=== PATIENT | female | born 2000 | race Two or more races ===

== ENCOUNTER 2023-09-03 00:08 | Emergency (ER) | payer OTHER ==
[~2023-09-03] VITALS: Ht 162.6 cm; Wt 77.1 kg
[2023-09-03 01:22] LABS: HEMATOCRIT 37.5 % (36.0-45.00); HEMOGLOBIN 12.6 g/dL (12.0-15.00); MEAN CELL VOLUME 78.6 fL (80.00-100.00); MEAN CORPUSCULAR HEMOGLOBIN 26.3 pg (27.00-32.0); MEAN CORPUSCULAR HGB CONC 33.5 g/dl (32.0-36.0); PLATELET COUNT 272 K/uL (150-450); RED BLOOD COUNT 4.78 M/uL (4.00-6.00); RED CELL DISTRIBUTION WIDTH 13.2 % (11.5-14.5)
[2023-09-03] MEDS ORDERED: AMOX-CLAV 875-1 EACH PO (02:17)
[2023-09-03] MEDS ORDERED: TUSNEL LIQUID178 ML PO (02:17)
== END 2023-09-03 02:20 | disposition home or self-care (01) ==
LOC: ER 00:08
PROVIDERS: General Practice
DX: J06.9 Acute upper respiratory infection, unspecified (principal); R05.9 Cough, unspecified; Z20.822 Contact with and (suspected) exposure to COVID-19

== ENCOUNTER 2024-06-18 19:19 | Emergency (ER) | payer OTHER ==
[~2024-06-18] VITALS: Ht 162.6 cm; Wt 72.6 kg
[~2024-06-18 19:19] MED LIST: AMOX-CLAV 875-1 EACH PO; TUSNEL LIQUID178 ML PO
[2024-06-18 19:51] VITALS: BP 130/75; O2SAT 101
[2024-06-18] MEDS ORDERED: 0.9 % SODIUM CHLORIDE 1,000 ML IV STA (20:03)
[2024-06-18 20:47] LABS: HEMOGLOBIN 12.6 g/dL (12.0-15.00); MEAN CELL VOLUME 78.2 fL (80.00-100.00); MEAN CORPUSCULAR HEMOGLOBIN 25.9 pg (27.00-32.0); MEAN CORPUSCULAR HGB CONC 33.1 g/dl (32.0-36.0); PLATELET COUNT 258 K/uL (150-450); RED BLOOD COUNT 4.86 M/uL (4.00-6.00); RED CELL DISTRIBUTION WIDTH 12.9 % (11.5-14.5)
[2024-06-18] MEDS ORDERED: FAMOTIDINE/PF 20 MG/2 ML VIAL IV PUSH ONE (21:00)
[2024-06-18 21:05] LABS: CALCIUM 9.2 mg/dL (8.5-10.1); CREATININE SERUM 0.61 mg/dL (0.55-1.02); GFR 123.81; POTASSIUM 3.33 mEq/L (3.5-5.1)
[2024-06-18 21:30] LABS: PH,URINE 5.5 (5.0-8.0); URINE APPEARANCE Clear; URINE BILIRRUBIN Negative (NEGATIVE); URINE BLOOD Negative; URINE COLOR Yellow; URINE GLUCOSE Negative (NEGATIVE); URINE KETONE Negative (NEGATIVE); URINE LEUKOCYTE Trace; URINE NITRATE Negative; URINE PROTEIN Negative (NEGATIVE); URINE UROBILINOGEN 0.2 E.U./dl
[2024-06-18 21:32] LABS: URINE BACTERIA 3143.3 uL (0.0-1933); URINE EPITHELIAL CELLS 64.1 uL (0.0-38.8); URINE WBC 41.8 uL (0.0-23.2)
[2024-06-18 21:36] LABS: URINE CAST 0.15 uL (0.0-1.40); URINE RBC 1.8 uL (0.0-20.8)
== END 2024-06-18 22:25 | disposition home or self-care (01) ==
LOC: ER 19:20
PROVIDERS: Emergency Medicine
DX: K52.89 Other specified noninfective gastroenteritis and colitis (principal)
CPT/HCPCS: 36415; 96365; 96366; 99282; J3490; J7030

== ENCOUNTER 2024-07-12 13:26 | Emergency (ER) | payer OTHER ==
[~2024-07-12] VITALS: Ht 162.6 cm; Wt 72.6 kg
[2024-07-12 17:41] LABS: HEMATOCRIT 38.1 % (36.0-45.00); HEMOGLOBIN 12.9 g/dL (12.0-15.00); MEAN CELL VOLUME 77.8 fL (80.00-100.00); MEAN CORPUSCULAR HEMOGLOBIN 26.3 pg (27.00-32.0); MEAN CORPUSCULAR HGB CONC 33.8 g/dl (32.0-36.0); PLATELET COUNT 282 K/uL (150-450); RED CELL DISTRIBUTION WIDTH 13.1 % (11.5-14.5)
[2024-07-12 17:53] LABS: PH,URINE 5.5 (5.0-8.0); URINE APPEARANCE Turbid; URINE BILIRRUBIN Negative (NEGATIVE); URINE BLOOD Negative; URINE COLOR Yellow; URINE GLUCOSE Negative (NEGATIVE); URINE KETONE Trace (NEGATIVE); URINE LEUKOCYTE Large; URINE NITRATE Negative; URINE PROTEIN Trace (NEGATIVE); URINE UROBILINOGEN 0.2 E.U./dl
[2024-07-12 17:55] LABS: CALCIUM 9.1 mg/dL (8.5-10.1); CREATININE SERUM 0.7 mg/dL (0.55-1.02); GFR 105.63; POTASSIUM 3.63 mEq/L (3.5-5.1)
[2024-07-12 17:57] LABS: URINE BACTERIA 8729.2 uL (0.0-1933); URINE EPITHELIAL CELLS 69.4 uL (0.0-38.8); URINE RBC 296.5 uL (0.0-20.8); URINE WBC 809.7 uL (0.0-23.2)
[2024-07-12 18:01] LABS: URINE CAST 0.45 uL (0.0-1.40)
[2024-07-12] MEDS ORDERED: CEFTRIAXONE SODIUM 1,000 MG VIAL IM STA (18:05)
== END 2024-07-12 18:18 | disposition home or self-care (01) ==
LOC: ER 13:28
PROVIDERS: General Practice
DX: R30.0 Dysuria (principal)

== ENCOUNTER → 2024-07-12 | Emergency (ER) | payer OTHER ==
[~2024-07-12] VITALS: Ht 162.6 cm; Wt 72.6 kg
[2024-07-12 01:39] VITALS: BP 99/66; O2SAT 99
== END | disposition left against medical advice (07) ==
LOC: ER 01:22
DX: Z53.21 Procedure and treatment not carried out due to patient leaving prior to being seen by health care provider (principal)

== ENCOUNTER 2025-02-09 18:59 | Emergency (ER) | payer OTHER ==
[~2025-02-09] VITALS: Ht 162.6 cm; Wt 77.1 kg
[2025-02-09] MEDS ORDERED: ONDANSETRON 4 MG TAB.RAPDIS PO STA (21:47)
[2025-02-09] MEDS ORDERED: IBUprofen 800 MG TABLET PO STA (21:49)
[2025-02-09 21:56] LABS: BASO % 0.3 % (0.1-1.2); EOS # 0.08 (0.04-0.54); EOS % 0.7 % (0.7-7.0); HEMATOCRIT 38.4 % (34.1-44.9); HEMOGLOBIN 12.3 g/dL (11.2-15.7); LYMPH # 2.52 (1.18-3.74); LYMPH % 20.5 % (19.3-53.1); MEAN CORPUSCULAR HEMOGLOBIN 24.9 pg (25.6-32.2); MONO # 0.53 (0.24-0.82); MONO % 4.3 % (4.7-12.5); NEUT # 9.09 (1.56-6.13); PLATELET COUNT 278 K/uL (163-369); RED BLOOD COUNT 4.93 M/uL (3.93-5.22); RED CELL DISTRIBUTION WIDTH 12.6 % (11.6-14.4)
[2025-02-09] MEDS ORDERED: ONDANSETRON 4 MG TAB.RAPDIS PO ONE (22:04)
[2025-02-09] MEDS ORDERED: IBUprofen 20 MG/ML BLIST.PACK (5ML) PO ONE (22:06)
[2025-02-09] MEDS ORDERED: ACETAMINOPHEN 500 MG GEL..CAP PO ONE ×2 (22:09→22:15)
[2025-02-09] MEDS ORDERED: KETOROLAC TROMETHAMINE 60 MG VIAL IM ONE (23:00)
[2025-02-09 23:44] LABS: PH,URINE 7.5 (5.0-8.0); URINE APPEARANCE Clear; URINE BILIRRUBIN Negative (NEGATIVE); URINE BLOOD Large; URINE COLOR Yellow; URINE GLUCOSE Negative (NEGATIVE); URINE KETONE Negative (NEGATIVE); URINE LEUKOCYTE Moderate; URINE NITRATE Negative; URINE PROTEIN Negative (NEGATIVE)
[2025-02-09 23:48] LABS: URINE RBC 1408.2 uL (0.0-20.8); URINE WBC 67.2 uL (0.0-23.2)
[2025-02-10] MEDS ORDERED: PYRIDIUM200 MG PO (00:06)
[2025-02-10] MEDS ORDERED: IBUPROFEN600 MG PO (00:06)
[2025-02-10] MEDS ORDERED: BACTRIM DS TAB1 EACH PO (00:06)
[2025-02-10] MEDS ORDERED: KETOROLAC TROMETHAMINE 60 MG VIAL IM ONE (00:11)
[2025-02-10] MEDS ORDERED: CEFTRIAXONE SODIUM 1,000 MG VIAL ONE (00:11)
[2025-02-10] MEDS ORDERED: CEFTRIAXONE SODIUM 1,000 MG VIAL IM ONE (00:15)
== END 2025-02-10 00:26 | disposition home or self-care (01) ==
LOC: ER 19:17
PROVIDERS: Preventive Medicine Public Health & General Preventive Medicine
DX: N39.0 Urinary tract infection, site not specified (principal); N94.6 Dysmenorrhea, unspecified